=== PATIENT | female | born 1930 | race Caucasian/White ===

== ENCOUNTER → 2016-07-20 | Outpatient (CLI) | payer MEDICARE, BC ==
[~2016-07-20] MED LIST: ALTACE PO; AMLODIPINE-BENA1 CAP PO; ASPIRIN81 M1 PO; ASPIRIN81 M2 PO; BUSPAR15 M1 PO; EYE VITAMIN; FERGON240 ( 27 ) PO; FERROUS SULFATE PO; HCTZ PO; HYDROCHLOROTHIA25 MG PO; KEPPRA500 MG PO; LEVOXYL125 MCG PO; PAXIL PO; PRAVACHOL20 MG PO; PRILOSEC PO; PRILOSEC20 MG PO; REQUIP0.25 MG PO; SYNTHROID PO; VITAMIN D1000 UNI1 PO
--- NOTE | ~2016-07-20 | CT71 ---
[facility] A Service of [facility] RADIOLOGY TEXT RESULTS PATIENT: PORFIRIO HUGHES LOCATION: [facility] : [birth year] UNIT #: [id number] AGE: [address]: NASIM PABLO MD SEX: F ORDER DR: [id number] [place] [id number] O MR#: [id number] Acc #: [id number] NAME: PORFIRIO HUGHES : 1930 SEX: F STUDY DATE/TIME: 07/20/2016 8:59 UNIT: [facility] ROOM: STUDY DESCRIPTION: CT Head Wo Contrast Attending Physician: Nasim Pablo M.D. Referring Physician: Nasim Pablo M.D. Ordering Physician: Nasim Pablo M.D. Primary Care Physician: Mynor Younger M.D. MEDICAL IMAGING REPORT This report is preliminary unless electronic signature is present. EXAM Head CT, no contrast, 07/20/2016. HISTORY Dizziness for several months, leg weakness. PROCEDURE Routine unenhanced head CT. This CT exam was performed with one or more of the following radiation dose reduction techniques: automatic exposure control, adjustment of mA and/or kV according to patient size, and iterative reconstruction. 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 The skull base and calvaria are otherwise unremarkable. There is cerebral volume loss and nonspecific chronic small vessel ischemic type chronic white matter change, but there is no hemorrhage or mass, hydrocephalus, or extraaxial fluid collection, or evidence of acute intracranial abnormality. The extracranial soft tissues are normal. IMPRESSION 1. 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 2. 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 No acute intracranial abnormality. Dictated by... Lukasz Joshi M.D. [facility] A Service of [facility] RADIOLOGY TEXT RESULTS PATIENT: PORFIRIO HUGHES LOCATION: [facility] : [birth year] UNIT #: [id number] AGE: [address]: NASIM PABLO MD SEX: F ORDER DR: THIS IS AN ELECTRONICALLY VERIFIED REPORT Lukasz Joshi M.D. at 07/22/2016 1:54 PM ANTIONETTE/salma TD: 07/20/2016 17:41 JOB #: [id number] MEDICAL IMAGING REPORT Page 1 of 1
== END | disposition home or self-care (01) ==
LOC: SCT 08:43
DX: H83.09 Labyrinthitis, unspecified ear (principal); G93.89 Other specified disorders of brain
CPT/HCPCS: 70450